=== PATIENT | female | born 1960 | race Caucasian/White ===

== ENCOUNTER 2022-06-04 08:47 | Day surgery (SDC) | payer OTHER ==
[2022-06-03 10:43] VITALS: BMI 35.9
[2022-06-04] MEDS ORDERED: PROPOFOL 20 ML ONE (10:40)
[2022-06-04] MEDS ORDERED: Lidocaine 1% PF 5 ML VIAL ONE (10:42)
== END 2022-06-04 11:37 | disposition home or self-care (01) ==
LOC: CSHSDC 08:47
PROVIDERS: ATTEND Internal Medicine Gastroenterology
PROC: 0DB68ZX Excision of Stomach, Via Natural or Artificial Opening Endoscopic, Diagnostic (ICD-10-PCS; principal; 2022-06-04)
DX: K31.7 Polyp of stomach and duodenum (principal); K44.9 Diaphragmatic hernia without obstruction or gangrene; R10.13 Epigastric pain; E78.5 Hyperlipidemia, unspecified; I10 Essential (primary) hypertension; E03.9 Hypothyroidism, unspecified; E66.9 Obesity, unspecified; Z68.36 Body mass index [BMI] 36.0-36.9, adult; Z79.890 Hormone replacement therapy; Z79.899 Other long term (current) drug therapy; Z88.2 Allergy status to sulfonamides
CPT/HCPCS: 88305; J2704